=== PATIENT | male | born 1970 | race American Indian/Alaskan Native ===

== ENCOUNTER 2023-02-11 09:38 | Emergency (ER) | payer OTHER ==
[2023-02-11 10:05] VITALS: BP 132/80; PULSE 74; RESP 17; TEMP 97.7; BMI 27.4
[2023-02-11] MEDS ORDERED: guaiFENesin 200 MG/10 ML 10 ML UNIT-DOSE CUPS PO ONE (10:20)
[2023-02-11] MEDS ORDERED: IBUPROFEN 400 MG TABLET (FP) PO ONE ×2 (10:20→10:35)
== END 2023-02-11 11:56 | disposition home or self-care (01) ==
LOC: JERFT 09:38
DX: J02.9 Acute pharyngitis, unspecified (principal); R05.9 Cough, unspecified; R09.3 Abnormal sputum; R07.0 Pain in throat; Z20.822 Contact with and (suspected) exposure to COVID-19
CPT/HCPCS: 0241U-QW; 87070; 87651; 99283-25